=== PATIENT | female | born 1950 | race Caucasian/White ===

== ENCOUNTER 2021-10-05 06:43 | Inpatient (IN) | payer MEDICARE, OTHER ==
[2021-10-05] MEDS ORDERED: Ondansetron 4 MG/2 ML SDV IVPUSH ONE ×2 (06:54→06:56)
[2021-10-05] MEDS ORDERED: Pantoprazole 40 MG Vial IVPUSH ONE (07:17)
[2021-10-05 07:18] LABS: PTT,PARTIAL THROMBOPLSTIN TIME 22.7 SEC (25.6-32.8)
[2021-10-05 07:21] LABS: ANION GAP 19.8 mmol/L (5-15)
--- NOTE | 2021-10-05 07:32 | EDM.PDOC ---
ED HPI GENERAL MEDICAL PROBLEM - General Chief Complaint: Gastrointestinal Problem Stated Complaint: VOMITING Time Seen by Provider: 10/05/21 06:55 Source of Information: Reports: Patient, Family History Limitations: Reports: No Limitations - History of Present Illness INITIAL COMMENTS - FREE TEXT/NARRATIVE: Patient presents the ER this morning after multiple episodes of vomiting black tarry vomitus that started about 3 this morning. Over the last couple days patient states she has been getting very lightheaded with episodes of dizziness and ongoing weakness for the last week with fatigue. This morning she states she is having some nausea with some generalized discomfort in the abdomen but no pain. She does admit to having some shortness of breath with any type of ex ertion. 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 But they had not as of yet. She has had no bleeding issues in the past no problems taking Xarelto has Onset: Sudden Duration: Hour(s): Quality: Reports: Dull Improves with: Reports: None Worsens with: Reports: None Associated Symptoms: Reports: Loss of Appetite, Malaise, Nausea/Vomiting, Shortness of Breath, Weakness. Denies: Confusion, Chest Pain, Cough, Diaphoresis, Fever/Chills, Headaches, Syncope - Related Data Allergies Allergy/AdvReac Type Severity Reaction Status Date / Time zoster vaccine live Allergy Rash Verified 01/11/15 10:19 Home Meds: Home Meds Atenolol [Tenormin] 1 tab PO DAILY 01/07/15 [History] Calcium Carbonate/Vitamin D3 [Calcium 250+D] 1 tab PO DAILY 01/07/15 [History] Cholecalciferol (Vitamin D3) [Vitamin D-3] 1 cap PO DAILY 01/07/15 [History] hydroCHLOROthiazide [Hydrochlorothiazide] 1 tab PO DAILY 01/07/15 [History] Aspirin 81 mg PO DAILY 10/05/21 [History] Calcium Citrate/Vitamin D3 [Calcium Citrate - Vit D Caplet] 1 each PO DAILY 10/05/21 [History] Rivaroxaban [Xarelto] 20 mg PO DAILY 10/05/21 [History] Topiramate [Topamax] 25 mg PO BID 10/05/21 [History] atorvaSTATin [Lipitor] 10 mg PO BEDTIME 10/05/21 [History] lisinopriL [Lisinopril] 10 mg PO DAILY 10/05/21 [History] metFORMIN [Glucophage XR] 500 mg PO BIDMEALS 10/05/21 [History] ED ROS GENERAL - Review of Systems Review Of Systems: See Below Constitutional: Reports: Weakness, Fatigue, Decreased Appetite HEENT: Reports: No Symptoms Respiratory: Reports: Shortness of Breath Cardiovascular: Reports: Dyspnea on Exertion, Lightheadedness. Denies: Chest Pain, Edema, Syncope Endocrine: Reports: No Symptoms GI/Abdominal: Reports: Abdominal Pain, Black Stool, Decreased Appetite, Hematemesis. Denies: Bloody Stool, Constipation, Diarrhea, Distension, Flatus, Nausea : Reports: No Symptoms Musculoskeletal: Reports: No Symptoms Skin: Reports: No Symptoms Neurological: Reports: Dizziness, Weakness Psychiatric: Reports: No Symptoms Hematologic/Lymphatic: Reports: No Symptoms. Denies: Anemia, Easy Bleeding, Easy Bruising Immunologic: Reports: No Symptoms ED EXAM, GI/ABD - Physical Exam Exam: See Below Exam Limited By: No Limitations General Appearance: Alert, WD/WN, No Apparent Distress Eyes: Bilateral: Normal Appearance, EOMI Ears: Normal External Exam, Normal Canal, Hearing Grossly Normal, Normal TMs Nose: Normal Inspection, Normal Mucosa, No Blood Throat/Mouth: Normal Inspection, Normal Lips, Normal Teeth, Normal Gums, Normal Oropharynx, Normal Voice, No Airway Compromise Head: Atraumatic, Normocephalic Neck: Normal Inspection, Supple, Non-Tender, Full Range of Motion Respiratory/Chest: No Respiratory Distress, Lungs Clear, Normal Breath Sounds, No Accessory Muscle Use, Chest Non-Tender Cardiovascular: Normal Peripheral Pulses, Regular Rate, Rhythm, No Edema, No Gallop, No JVD, No Murmur, No Rub, Tachycardia GI/Abdominal Exam: Normal Bowel Sounds, Soft, No Organomegaly, No Distention, No Abnormal Bruit, Tender. No: Non-Tender, Distended, Guarding, Rigid, Rebound, Abnormal Bowel Sounds, Hepatomegaly, Splenomegaly Extremities: Normal Inspection, Normal Range of Motion, Non-Tender, No Pedal Edema, Normal Capillary Refill Neurological: Alert, Oriented, CN II-XII Intact, Normal Cognition, Normal Gait, No Motor/Sensory Deficits Psychiatric: Normal Affect, Normal Mood Skin Exam: Warm, Dry, Intact, Normal Color, No Rash Lymphatic: No Adenopathy Course - Vital Signs Text/Narrative:: CBC CMP INR EKG Positive orthostatics just with the patient lying in the bed going to sitting up ZOFRAN 8 mg IV Protonix 40 mg IV CBC hemoglobin 11 hematocrit 33 BUN and creatinine is elevated BUN at 75/1.6 INR 1.4 normal PTT Positive Hemoccult Called [facility] Spoke with Dr. Adams she states she is covered up this morning have the patient admitted under the on-call provider Spoke with Dr. Maile Morin she will admit the patient 0 [phone] Last Recorded V/S: Last Vital Signs Temp 36.2 C 10/05/21 06:48 Pulse 107 H 10/05/21 08:13 Resp 11 L 10/05/21 08:13 BP 95/38 L 10/05/21 08:13 Pulse Ox 117 H 10/05/21 08:13 - Orders/Labs/Meds Orders: Active Orders 24 hr Category Date Time Status Promethazine [Phenergan] 12.5 mg Med 10/05/21 08:27 Ordered Sodium Chloride 0.9% [Normal Saline] 100 ml IV ONETIME Medication Orders Promethazine HCl 12.5 mg/ (Sodium Chloride) 100.5 mls @ 400 mls/hr IV ONETIME ONE Stop: 10/05/21 08:42 Last Admin: 10/05/21 08:35 Dose: 400 mls/hr Documented by: LUCINDA Labs: Laboratory Tests 10/05/21 10/05/21 10/05/21 Range/Units 06:40 06:40 06:40 WBC 10.3 H (4.0-10.0) x10^3/uL RBC 3.75 L (4.00-5.50) x10^6/uL Hgb 11.0 L (12.0-16.0) g/dL Hct 33.4 (33.0-47.0) % MCV 89.1 (78.0-93.0) fL MCH 29.3 (26.0-32.0) pg MCHC 32.9 (32.0-36.0) g/dL RDW Coeff of Yony 13.9 (10.0-15.0) % Plt Count 265 (130-400) x10^3/uL Immature Gran % (Auto) 0.10 (0.00-0.43) % Neut % (Auto) 73.4 (50.0-80.0) % Lymph % (Auto) 23.0 L (25.0-50.0) % [place] % (Auto) 3.0 (2.0-11.0) % Eos % (Auto) 0.4 (0.0-4.0) % Baso % (Auto) 0.1 L (0.2-1.2) % Neut # (Auto) 7.6 (1.8-7.7) x10^3/uL Lymph # (Auto) 2.4 (1.0-4.8) x10^3/uL [place] # (Auto) 0.3 (0.0-0.8) x10^3/uL Eos # (Auto) 0.0 (0.0-0.5) x10^3/uL Baso # (Auto) 0.0 (0.0-0.2) x10^3/uL Immature Gran # (Auto) 0.01 (0.00-0.07) x10^3/uL PT 15.5 H (9.9-12.5) SEC INR 1.4 L (2.0-3.5) APTT 22.7 L (25.6-32.8) SEC Sodium 141 (136-145) mmol/L Potassium 3.8 (3.5-5.1) mmol/L Chloride 103 (98-107) mmol/L Carbon Dioxide 22 (21-32) mmol/L Anion Gap 19.8 H (5-15) mmol/L BUN 75 H* (7-18) mg/dL Creatinine 1.6 H (0.55-1.02) mg/dL Est Cr Clr Drug Dosing 27.44 mL/min Estimated GFR (MDRD) 32 Glucose 209 H (70-99) mg/dL Calcium 9.3 (8.5-10.1) mg/dL Corrected Calcium 10.0 (8.5-10.1) mg/dL Total Bilirubin 0.7 (0.2-1.0) mg/dL AST 16 (15-37) U/L ALT 28 (14-59) U/L Alkaline Phosphatase 48 (46-116) U/L Total Protein 6.0 L (6.4-8.2) g/dL Albumin 3.1 L (3.4-5.0) g/dL Globulin 2.9 Albumin/Globulin Ratio 1.07 Stool Occult Blood (NEGATIVE) 10/05/21 Range/Units 07:41 WBC (4.0-10.0) x10^3/uL RBC (4.00-5.50) x10^6/uL Hgb (12.0-16.0) g/dL Hct (33.0-47.0) % MCV (78.0-93.0) fL MCH (26.0-32.0) pg MCHC (32.0-36.0) g/dL RDW Coeff of Yony (10.0-15.0) % Plt Count (130-400) x10^3/uL Immature Gran % (Auto) (0.00-0.43) % Neut % (Auto) (50.0-80.0) % Lymph % (Auto) (25.0-50.0) % [place] % (Auto) (2.0-11.0) % Eos % (Auto) (0.0-4.0) % Baso % (Auto) (0.2-1.2) % Neut # (Auto) (1.8-7.7) x10^3/uL Lymph # (Auto) (1.0-4.8) x10^3/uL [place] # (Auto) (0.0-0.8) x10^3/uL Eos # (Auto) (0.0-0.5) x10^3/uL Baso # (Auto) (0.0-0.2) x10^3/uL Immature Gran # (Auto) (0.00-0.07) x10^3/uL PT (9.9-12.5) SEC INR (2.0-3.5) APTT (25.6-32.8) SEC Sodium (136-145) mmol/L Potassium (3.5-5.1) mmol/L Chloride (98-107) mmol/L Carbon Dioxide (21-32) mmol/L Anion Gap (5-15) mmol/L BUN (7-18) mg/dL Creatinine (0.55-1.02) mg/dL Est Cr Clr Drug Dosing mL/min Estimated GFR (MDRD) Glucose (70-99) mg/dL Calcium (8.5-10.1) mg/dL Corrected Calcium (8.5-10.1) mg/dL Total Bilirubin (0.2-1.0) mg/dL AST (15-37) U/L ALT (14-59) U/L Alkaline Phosphatase (46-116) U/L Total Protein (6.4-8.2) g/dL Albumin (3.4-5.0) g/dL Globulin Albumin/Globulin Ratio Stool Occult Blood Positive H (NEGATIVE) Meds: Medications Generic Name Dose Route Start Last Admin Trade Name Freq PRN Reason Stop Dose Admin Promethazine HCl 12.5 mg/ 100.5 mls @ 400 mls/hr 10/05/21 08:27 10/05/21 08:35 Sodium Chloride IV 10/05/21 08:42 400 mls/hr ONETIME ONE Administration Discontinued Medications Generic Name Dose Route Start Last Admin Trade Name Freq PRN Reason Stop Dose Admin Ondansetron HCl 4 mg 10/05/21 06:54 10/05/21 07:05 Ondansetron 4 Mg/2 Ml Sdv IVPUSH 10/05/21 06:55 4 mg ONETIME ONE Administration Ondansetron HCl 4 mg 10/05/21 06:56 10/05/21 07:05 Ondansetron 4 Mg/2 Ml Sdv IVPUSH 10/05/21 06:57 4 mg ONETIME ONE Administration Pantoprazole Sodium 40 mg 10/05/21 07:17 10/05/21 08:26 Pantoprazole 40 Mg Vial IVPUSH 10/05/21 07:18 40 mg ONETIME ONE Administration Departure - Departure Time of Disposition: 08:20 Disposition: Admitted As Inpatient 65 Condition: Good Clinical Impression: GI bleed, History of atrial fibrillation, Anticoagulation management encounter, Dizziness, Fatigue, Nausea and vomiting - Discharge Information *PRESCRIPTION DRUG MONITORING PROGRAM REVIEWED*: No *COPY OF PRESCRIPTION DRUG MONITORING REPORT IN PATIENT PRASANNA: No Referrals: Rebeca Senior MD [Primary Care Provider] - Forms: ED Department Discharge Sepsis Event Note (ED) - Evaluation Sepsis Screening Result: No Definite Risk - Focused Exam Vital Signs: Vital Signs Temp Pulse Resp BP Pulse Ox 10/05/21 08:13 107 H 11 L 95/38 L 117 H 10/05/21 07:42 127 H 13 93/57 L 98 10/05/21 06:48 36.2 C 105 H 19 99/50 L 97 - Problem List & Annotations (1) GI bleed SNOMED Code(s): 25240929 Code(s): K92.2 - GASTROINTESTINAL HEMORRHAGE, UNSPECIFIED Status: Acute Current Visit: Yes (2) Anticoagulation management encounter SNOMED Code(s): 258318626 Code(s): Z51.81 - ENCOUNTER FOR THERAPEUTIC DRUG LEVEL MONITORING; Z79.01 - STEM TEACHER (CURRENT) USE OF ANTICOAGULANTS Status: Acute Current Visit: Yes (3) Dizziness SNOMED Code(s): 521649081, 001836523 Code(s): R42 - DIZZINESS AND GIDDINESS Status: Acute Current Visit: Yes (4) Fatigue SNOMED Code(s): 75696084 Code(s): R53.83 - OTHER FATIGUE Status: Acute Current Visit: Yes (5) History of atrial fibrillation SNOMED Code(s): 076210928 Code(s): Z86.79 - PERSONAL HISTORY OF OTHER DISEASES OF THE CIRCULATORY SYSTEM Status: Acute Current Visit: Yes (6) Nausea and vomiting SNOMED Code(s): 28202883 Code(s): R11.2 - NAUSEA WITH VOMITING, UNSPECIFIED Status: Acute Current Visit: Yes - My Orders Last 24 Hours: My Active Orders 10/05/21 08:27 Promethazine [Phenergan] 12.5 mg Sodium Chloride 0.9% [Normal Saline] 100 ml IV ONETIME - Assessment/Plan Last 24 Hours: My Active Orders 10/05/21 08:27 Promethazine [Phenergan] 12.5 mg Sodium Chloride 0.9% [Normal Saline] 100 ml IV ONETIME
[2021-10-05] MEDS ORDERED: Promethazine 12.5 MG in Sodium Chloride 0.9% 100 ML IV ONE (08:27)
[2021-10-05] MEDS ORDERED: Sodium Chloride 0.9% 1,000 ML IV SCH ×2 (09:15→09:45)
[2021-10-05] MEDS ORDERED: Ondansetron 4 MG/2 ML SDV IV PRN (09:38)
[2021-10-05] MEDS ORDERED: Promethazine 12.5 MG in Sodium Chloride 0.9% 100 ML IV PRN (09:38)
--- NOTE | 2021-10-05 09:51 | PCM.HP.2 ---
H&P History of Present Illness - General Date of Service: 10/05/21 Admit Problem/Dx: Admission Diagnosis/Problem Admission Diagnosis/Problem GI bleed not requiring more than 4 units of blood in 24 hours, ICU, or surgery Source of Information: Patient History Limitations: Reports: No Limitations - History of Present Illness Initial Comments - Free Text/Narative: Mrs. Clay is a 71 yo female with PMH of a-fib, HTN, ROLANDO, RAD, hyperlipidemia, obesity, and osteopenia who presented to the ER for evaluation following 3 episodes of black, coffee ground emesis overnight. She really has not been doing well for the past 1-2 weeks. She has had some shortness of breath with exertion and also has been more fatigued than usual. No chest pain. She has been lightheaded and that has been progressively getting worse. Until the past 24 hours, there was no evidence of any blood loss. However, over the past 24 hours, she had a black stool and the coffee ground emesis as above. She has not vomited since coming in to the ER now and has not had any further stools. She has no abdominal pain at all. She saw her sliver lap tender yesterday and they adjusted some of her BP medications thinking that was the cause of her lightheadedness since she has also lost some weight by making some lifestyle changes. She does not take any NSAID's or drink alcohol on a regular basis. She does not smoke. She is on xarelto and aspirin. - Related Data Allergies/Adverse Reactions: Allergies Allergy/AdvReac Type Severity Reaction Status Date / Time zoster vaccine live Allergy Rash Verified 01/11/15 10:19 Home Medications: Home Meds Atenolol [Tenormin] 100 tab PO DAILY 01/07/15 [History] Calcium Carbonate/Vitamin D3 [Calcium 250+D] 1 tab PO DAILY 01/07/15 [History] Cholecalciferol (Vitamin D3) [Vitamin D-3] 1 cap PO DAILY 01/07/15 [History] hydroCHLOROthiazide [Hydrochlorothiazide] 1 tab PO DAILY 01/07/15 [History] Aspirin 81 mg PO DAILY 10/05/21 [History] Calcium Citrate/Vitamin D3 [Calcium Citrate - Vit D Caplet] 1 each PO DAILY 10/05/21 [History] Rivaroxaban [Xarelto] 20 mg PO DAILY 10/05/21 [History] Topiramate [Topamax] 25 mg PO BID 10/05/21 [History] atorvaSTATin [Lipitor] 10 mg PO BEDTIME 10/05/21 [History] lisinopriL [Lisinopril] 10 mg PO DAILY 10/05/21 [History] metFORMIN [Glucophage XR] 500 mg PO BIDMEALS 10/05/21 [History] Past Medical History HEENT History: Reports: None Cardiovascular History: Reports: Afib, High Cholesterol, Hypertension Respiratory History: Reports: Asthma, Sleep Apnea Gastrointestinal History: Reports: None Genitourinary History: Reports: None Musculoskeletal History: Reports: Other (See Below) (osteopenia) Neurological History: Reports: None Psychiatric History: Reports: None Endocrine/Metabolic History: Reports: Obesity/BMI 30+ Hematologic History: Reports: None Immunologic History: Reports: None Oncologic (Cancer) History: Reports: None Dermatologic History: Reports: None - Infectious Disease History Infectious Disease History: Reports: None - Past Surgical History HEENT Surgical History: Reports: Cataract Surgery GI Surgical History: Reports: Other (See Below) (lap for infertility x 3) Musculoskeletal Surgical History: Reports: Hip Replacement, Other (See Below) (ankle fracture) Social & Family History - Family History Cardiac: Reports: CAD, Hypertension Neurological: Reports: CVA - Tobacco Use Tobacco Use Status *Q: Never Tobacco User - Alcohol Use Alcohol Use History: No Alcohol Use in Last Twelve Months: Yes Alcohol Use Frequency: Rarely - Recreational Drug Use Recreational Drug Use: No - Living Situation & Occupation Living situation: Reports: , with Spouse Occupation: Retired H&P Review of Systems - Review of Systems: Review Of Systems: See Below General: Reports: No Symptoms HEENT: Reports: No Symptoms Pulmonary: Reports: Shortness of Breath. Denies: Cough Cardiovascular: Reports: Dyspnea on Exertion, Lightheadedness. Denies: Chest Pain Gastrointestinal: Reports: Black Stool, Melena, Nausea, Vomiting. Denies: Ab dominal Pain, Anorexia, Decreased Appetite Genitourinary: Reports: No Symptoms Musculoskeletal: Reports: No Symptoms Skin: Reports: No Symptoms Psychiatric: Reports: No Symptoms Neurological: Reports: No Symptoms Hematologic/Lymphatic: Reports: No Symptoms Exam - Exam Exam: See Below - Vital Signs Vital Signs: Last Vital Signs Temp 36.2 C 10/05/21 06:48 Pulse 107 H 10/05/21 08:13 Resp 11 L 10/05/21 08:13 BP 95/38 L 10/05/21 08:13 Pulse Ox 117 H 10/05/21 08:13 Weight: 87.09 kg - Exam General: Alert, Oriented, Cooperative HEENT: Conjunctiva Clear, Mucosa Moist & Watchung, Posterior Pharynx Clear, Pupils Equal, Pupils Reactive Neck: Supple, Trachea Midline. No: Lymphadenopathy, Thyromegaly Lungs: Clear to Auscultation, Normal Respiratory Effort Cardiovascular: Normal S1, Normal S2, Irregular Rhythm, Tachycardia, Systolic Murmur GI/Abdominal Exam: Normal Bowel Sounds, Soft, Non-Tender, No Organomegaly, No Distention, No Mass Extremities: Normal Inspection, Normal Range of Motion, Non-Tender, No Pedal Edema, Normal Capillary Refill Peripheral Pulses: 2+: Radial (L), Radial (R) Skin: Warm, Dry, Intact Neuro Extensive - Mental Status: Alert, Oriented x3, Normal Cognition - Patient Data Lab Results Last 24 hrs: Laboratory Results - last 24 hr 10/05/21 10/05/21 10/05/21 Range/Units 06:40 06:40 06:40 WBC 10.3 H (4.0-10.0) x10^3/uL RBC 3.75 L (4.00-5.50) x10^6/uL Hgb 11.0 L (12.0-16.0) g/dL Hct 33.4 (33.0-47.0) % MCV 89.1 (78.0-93.0) fL MCH 29.3 (26.0-32.0) pg MCHC 32.9 (32.0-36.0) g/dL RDW Coeff of Yony 13.9 (10.0-15.0) % Plt Count 265 (130-400) x10^3/uL Immature Gran % (Auto) 0.10 (0.00-0.43) % Neut % (Auto) 73.4 (50.0-80.0) % Lymph % (Auto) 23.0 L (25.0-50.0) % [place] % (Auto) 3.0 (2.0-11.0) % Eos % (Auto) 0.4 (0.0-4.0) % Baso % (Auto) 0.1 L (0.2-1.2) % Neut # (Auto) 7.6 (1.8-7.7) x10^3/uL Lymph # (Auto) 2.4 (1.0-4.8) x10^3/uL [place] # (Auto) 0.3 (0.0-0.8) x10^3/uL Eos # (Auto) 0.0 (0.0-0.5) x10^3/uL Baso # (Auto) 0.0 (0.0-0.2) x10^3/uL Immature Gran # (Auto) 0.01 (0.00-0.07) x10^3/uL PT 15.5 H (9.9-12.5) SEC INR 1.4 L (2.0-3.5) APTT 22.7 L (25.6-32.8) SEC Sodium 141 (136-145) mmol/L Potassium 3.8 (3.5-5.1) mmol/L Chloride 103 (98-107) mmol/L Carbon Dioxide 22 (21-32) mmol/L Anion Gap 19.8 H (5-15) mmol/L BUN 75 H* (7-18) mg/dL Creatinine 1.6 H (0.55-1.02) mg/dL Est Cr Clr Drug Dosing 27.44 mL/min Estimated GFR (MDRD) 32 Glucose 209 H (70-99) mg/dL Calcium 9.3 (8.5-10.1) mg/dL Corrected Calcium 10.0 (8.5-10.1) mg/dL Total Bilirubin 0.7 (0.2-1.0) mg/dL AST 16 (15-37) U/L ALT 28 (14-59) U/L Alkaline Phosphatase 48 (46-116) U/L Total Protein 6.0 L (6.4-8.2) g/dL Albumin 3.1 L (3.4-5.0) g/dL Globulin 2.9 Albumin/Globulin Ratio 1.07 Stool Occult Blood (NEGATIVE) SARS CoV-2 RNA Rapid LIBRADO (NEGATIVE) 10/05/21 10/05/21 Range/Units 07:41 08:56 WBC (4.0-10.0) x10^3/uL RBC (4.00-5.50) x10^6/uL Hgb (12.0-16.0) g/dL Hct (33.0-47.0) % MCV (78.0-93.0) fL MCH (26.0-32.0) pg MCHC (32.0-36.0) g/dL RDW Coeff of Yony (10.0-15.0) % Plt Count (130-400) x10^3/uL Immature Gran % (Auto) (0.00-0.43) % Neut % (Auto) (50.0-80.0) % Lymph % (Auto) (25.0-50.0) % [place] % (Auto) (2.0-11.0) % Eos % (Auto) (0.0-4.0) % Baso % (Auto) (0.2-1.2) % Neut # (Auto) (1.8-7.7) x10^3/uL Lymph # (Auto) (1.0-4.8) x10^3/uL [place] # (Auto) (0.0-0.8) x10^3/uL Eos # (Auto) (0.0-0.5) x10^3/uL Baso # (Auto) (0.0-0.2) x10^3/uL Immature Gran # (Auto) (0.00-0.07) x10^3/uL PT (9.9-12.5) SEC INR (2.0-3.5) APTT (25.6-32.8) SEC Sodium (136-145) mmol/L Potassium (3.5-5.1) mmol/L Chloride (98-107) mmol/L Carbon Dioxide (21-32) mmol/L Anion Gap (5-15) mmol/L BUN (7-18) mg/dL Creatinine (0.55-1.02) mg/dL Est Cr Clr Drug Dosing mL/min Estimated GFR (MDRD) Glucose (70-99) mg/dL Calcium (8.5-10.1) mg/dL Corrected Calcium (8.5-10.1) mg/dL Total Bilirubin (0.2-1.0) mg/dL AST (15-37) U/L ALT (14-59) U/L Alkaline Phosphatase (46-116) U/L Total Protein (6.4-8.2) g/dL Albumin (3.4-5.0) g/dL Globulin Albumin/Globulin Ratio Stool Occult Blood Positive H (NEGATIVE) SARS CoV-2 RNA Rapid LIBRADO Negative (NEGATIVE) Result Diagrams: 10/05/21 10:30 10/05/21 06:40 Sepsis Event Note - Evaluation Sepsis Screening Result: No Definite Risk - Focused Exam Vital Signs: Vital Signs Temp Pulse Resp BP Pulse Ox 10/05/21 08:13 107 H 11 L 95/38 L 117 H 10/05/21 07:42 127 H 13 93/57 L 98 10/05/21 06:48 36.2 C 105 H 19 99/50 L 97 *Q Meaningful Use (ADM) - VTE *Q VTE Anticoagulation Contraindications: Medical/Procedure Contrai - Problem List (1) GI bleed SNOMED Code(s): 73916040 ICD Code: K92.2 - GASTROINTESTINAL HEMORRHAGE, UNSPECIFIED Status: Acute Current Visit: Yes Qualifiers: GI bleed type/associated pathology: unspecified gastrointestinal hemorrhage type Qualified Code(s): K92.2 - Gastrointestinal hemorrhage, unspecified (2) Anemia SNOMED Code(s): 464640396 ICD Code: D64.9 - ANEMIA, UNSPECIFIED Status: Acute Current Visit: Yes Qualifiers: Anemia type: other cause Other causes of anemia: acute posthemorrhagic Qualified Code(s): D62 - Acute posthemorrhagic anemia (3) Atrial fibrillation SNOMED Code(s): 23485737 ICD Code: I48.91 - UNSPECIFIED ATRIAL FIBRILLATION Status: Chronic Current Visit: Yes Qualifiers: Atrial fibrillation type: persistent (not longstanding) Qualified Code(s): I48.19 - Other persistent atrial fibrillation; I48.1 - Persistent atrial fibrillation (4) Chronic anticoagulation SNOMED Code(s): 829786435 ICD Code: Z79.01 - DEPUTY BAILIFF (CURRENT) USE OF ANTICOAGULANTS Status: Chronic Current Visit: Yes (5) TRU (acute kidney injury) SNOMED Code(s): 19486969, 04827756 ICD Code: N17.9 - ACUTE KIDNEY FAILURE, UNSPECIFIED Status: Acute Current Visit: Yes (6) Hypertension SNOMED Code(s): 88793835 ICD Code: I10 - ESSENTIAL (PRIMARY) HYPERTENSION Status: Chronic Current Visit: Yes Qualifiers: Hypertension type: primary hypertension Qualified Code(s): I10 - Essential (primary) hypertension (7) ROLANDO (obstructive sleep apnea) SNOMED Code(s): 66227515 ICD Code: G47.33 - OBSTRUCTIVE SLEEP APNEA (ADULT) (PEDIATRIC) Status: Chronic Current Visit: Yes (8) Reactive airway disease SNOMED Code(s): 130098988142 ICD Code: J45.909 - UNSPECIFIED ASTHMA, UNCOMPLICATED Status: Chronic Current Visit: Yes Qualifiers: Asthma severity: unspecified severity Asthma persistence: unspecified Asthma complication type: uncomplicated Qualified Code(s): J45.909 - Unspecified asthma, uncomplicated (9) Obesity SNOMED Code(s): 400765818, 796236149 ICD Code: E66.9 - OBESITY, UNSPECIFIED Status: Chronic Current Visit: Yes Qualifiers: Obesity type: due to excess calories Obesity classification: adult class 1 (BMI 30 - 34.9) Serious obesity comorbidity presence: with serious comorbidity Body mass index: BMI 32.0-32.9 Qualified Code(s): E66.09 - Other obesity due to excess calories; Z68.32 - Body mass index [BMI] 32.0-32.9, adult Problem List Initiated/Reviewed/Updated: Yes Orders Last 24hrs: Active Orders 24 hr Category Date Time Status Patient Status [ADT] Stat ADT 10/05/21 08:49 Active Notify Provider Vital Signs [RC] ASDIRECTED Care 10/05/21 09:39 Ordered Oxygen Therapy [RC] PRN Care 10/05/21 09:38 Ordered Up With Assistance [RC] ASDIRECTED Care 10/05/21 09:38 Ordered VTE/DVT Education [RC] PER UNIT ROUTINE Care 10/05/21 09:38 Ordered Vital Signs [RC] Q4H Care 10/05/21 09:38 Ordered Nothing per Oral Now Diet [DIET] Diet 10/05/21 Breakfast Ordered CBC WITH AUTO DIFF [HEME] Routine Lab 10/05/21 10:30 Ordered Ondansetron [Zofran] Med 10/05/21 09:38 Ordered 4 mg IV Q6H PRN Pantoprazole [ProTONIX IV] Med 10/05/21 20:00 Ordered 40 mg IVPUSH BID Promethazine [Phenergan] 12.5 mg Med 10/05/21 09:38 Ordered Sodium Chloride 0.9% [Normal Saline] 100 ml IV Q6H Sodium Chloride 0.9% [Normal Saline] 1,000 ml Med 10/05/21 09:45 Ordered IV ASDIRECTED Anticoagulation Contraindications VTE [AST] Per Unit Oth 10/05/21 09:38 Ordered Routine Resuscitation Status Routine Resus Stat 10/05/21 09:38 Ordered Medication Orders Sodium Chloride (Normal Saline) 1,000 mls @ 200 mls/hr IV ASDIRECTED MERLE Pantoprazole Sodium (Pantoprazole 40 Mg Vial) 40 mg IVPUSH BID MERLE Assessment/Plan Comment:: 71 yo female admitted with GI bleed. #1 GI bleed #2 Acute blood loss anemia - Plan at this time is to check Hgb every 4 hours. - After patient was seen for admission, her BP dropped and HR increased. Hgb also down to 8.6. Therefore, a rapid response was called. Patient was given additional boluses of normal saline and then lactated ringers. She was given a stat transfusion of 1 unit PRBC as well as 1 unit FFP, 50 mg of octreotide, and 2000 of KCentra. - The transfer line and [facility] were contacted to attempt transfer of the patient. [facility] not able to accept. Transfer line is working on it. - Patient and aware that we do not have access to definitive care here in [place] but that we will do everything we can locally and continue to work on getting her somewhere that can give her definitive care. - Patient will get another 2 units of PRBC's. - She has [address] - NPO. - Anti-emetics as ordered. #3 A-fib #4 Chronic anticoagulation - HR is up, likely partially from the a-fib and not having her atenolol; however, this will be held in light of her current tenuous status. - Hold anticoagulation. #5 TRU - Secondary to above. - Fluids and PRBC's as above. #6 Hypertension #7 ROLANDO #8 RAD #9 Obesity - Home medications to be held. Patient is admitted to acute - she really needs to be in a center with surgery at the very least but there is no bed at this time. Therefore, we will do what we can as above. >1 hour was spent in the care of this critical patient this morning. Status is guarded at this point. Code status is full - discussed on admission. No pharmacologic VTE prophylaxis as this is contraindicated in light of above. - Mortality Measure Prognosis:: Poor (guarded)
[2021-10-05] MEDS ORDERED: Pantoprazole 40 MG Vial IVPUSH SCH (10:45)
[2021-10-05] MEDS ORDERED: Octreotide 100 MCG/ML SDV IV ONE (10:59)
[2021-10-05] MEDS ORDERED: Lactated Ringers 1,000 ML IV SCH ×2 (11:15→13:15)
[2021-10-05] MEDS ORDERED: Metoclopramide 10 MG/2 ML SDV IVPUSH STA (11:19)
[2021-10-05] MEDS ORDERED: Factor IX Complex Human 500 UNIT VIAL ONE (11:30)
[2021-10-05] MEDS ORDERED: FACTOR IX COMPLEX HUMAN 2000 UNIT IV ONE ×2 (11:30)
[2021-10-05] MEDS ORDERED: Pantoprazole 40 MG in Sodium Chloride 0.9% 100 ML IV SCH (11:45)
--- NOTE | 2021-10-05 13:57 | PCM.DCSUM1 ---
Discharge Summary - Hospital Course Brief History: Patient admitted with GI bleed. Unstable but initially unable to transfer to a tertiary center. Now bed available at [facility]. Patient will be transferred there for further care. - Discharge Data Discharge Date: 10/05/21 Discharge Disposition: DC/Tfer to Acute Hospital 02 Condition: Good - Referral to Home Health Primary Care Physician: Rebeca Senior MD - Discharge Diagnosis/Problem(s) (1) GI bleed SNOMED Code(s): 91401191 ICD Code: K92.2 - GASTROINTESTINAL HEMORRHAGE, UNSPECIFIED Status: Acute Current Visit: Yes Qualifiers: GI bleed type/associated pathology: unspecified gastrointestinal hemorrhage type Qualified Code(s): K92.2 - Gastrointestinal hemorrhage, unspecified (2) Anemia SNOMED Code(s): 431419056 ICD Code: D64.9 - ANEMIA, UNSPECIFIED Status: Acute Current Visit: Yes Qualifiers: Anemia type: other cause Other causes of anemia: acute posthemorrhagic Qualified Code(s): D62 - Acute posthemorrhagic anemia (3) Atrial fibrillation SNOMED Code(s): 18815961 ICD Code: I48.91 - UNSPECIFIED ATRIAL FIBRILLATION Status: Chronic Current Visit: Yes Qualifiers: Atrial fibrillation type: persistent (not longstanding) Qualified Code(s): I48.19 - Other persistent atrial fibrillation; I48.1 - Persistent atrial fibrillation (4) Chronic anticoagulation SNOMED Code(s): 773422358 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 Status: Chronic Current Visit: Yes (5) TRU (acute kidney injury) SNOMED Code(s): 46125129, 78657160 ICD Code: N17.9 - ACUTE KIDNEY FAILURE, UNSPECIFIED Status: Acute Current Visit: Yes (6) Hypertension SNOMED Code(s): 40273331 ICD Code: I10 - ESSENTIAL (PRIMARY) HYPERTENSION Status: Chronic Current Visit: Yes Qualifiers: Hypertension type: primary hypertension Qualified Code(s): I10 - Essential (primary) hypertension (7) ROLANDO (obstructive sleep apnea) SNOMED Code(s): 57748938 ICD Code: G47.33 - OBSTRUCTIVE SLEEP APNEA (ADULT) (PEDIATRIC) Status: Chronic Current Visit: Yes (8) Reactive airway disease SNOMED Code(s): 503974545932 ICD Code: J45.909 - UNSPECIFIED ASTHMA, UNCOMPLICATED Status: Chronic Current Visit: Yes Qualifiers: Asthma severity: unspecified severity Asthma persistence: unspecified Asthma complication type: uncomplicated Qualified Code(s): J45.909 - Unspecified asthma, uncomplicated (9) Obesity SNOMED Code(s): 237872402, 524140337 ICD Code: E66.9 - OBESITY, UNSPECIFIED Status: Chronic Current Visit: Yes Qualifiers: Obesity type: due to excess calories Obesity classification: adult class 1 (BMI 30 - 34.9) Serious obesity comorbidity presence: with serious comorbidity Body mass index: BMI 32.0-32.9 Qualified Code(s): E66.09 - Other obesity due to excess calories; Z68.32 - Body mass index [BMI] 32.0-32.9, adult - Discharge Plan *PRESCRIPTION DRUG MONITORING PROGRAM REVIEWED*: No *COPY OF PRESCRIPTION DRUG MONITORING REPORT IN PATIENT PRASANNA: No Home Medications: Home Meds Atenolol [Tenormin] 100 tab PO DAILY 01/07/15 [History] Calcium Carbonate/Vitamin D3 [Calcium 250+D] 1 tab PO DAILY 01/07/15 [History] Cholecalciferol (Vitamin D3) [Vitamin D-3] 1 cap PO DAILY 01/07/15 [History] hydroCHLOROthiazide [Hydrochlorothiazide] 1 tab PO DAILY 01/07/15 [History] Aspirin 81 mg PO DAILY 10/05/21 [History] Calcium Citrate/Vitamin D3 [Calcium Citrate - Vit D Caplet] 1 each PO DAILY 10/05/21 [History] Rivaroxaban [Xarelto] 20 mg PO DAILY 10/05/21 [History] Topiramate [Topamax] 25 mg PO BID 10/05/21 [History] atorvaSTATin [Lipitor] 10 mg PO BEDTIME 10/05/21 [History] lisinopriL [Lisinopril] 10 mg PO DAILY 10/05/21 [History] metFORMIN [Glucophage XR] 500 mg PO BIDMEALS 10/05/21 [History] Forms: ED Department Discharge Referrals: Rebeca Senior MD [Primary Care Provider] - - Discharge Summary/Plan Comment DC Time >30 min.: Yes Total # of Minutes for Discharge Time: 60 - Patient Data Vitals - Most Recent: Last Vital Signs Temp 37.7 C 10/05/21 13:46 Pulse 125 H 10/05/21 13:46 Resp 20 10/05/21 13:46 BP 128/68 10/05/21 13:46 Pulse Ox 97 10/05/21 13:46 Weight - Most Recent: 87.09 kg I&O - Last 24 hours: Intake & Output 10/04/21 10/05/21 10/05/21 22:59 06:59 14:59 Intake Total 80 Balance 80 Lab Results - Last 24 hrs: Laboratory Results - last 24 hr 10/05/21 10/05/21 10/05/21 Range/Units 06:40 06:40 06:40 WBC 10.3 H (4.0-10.0) x10^3/uL RBC 3.75 L (4.00-5.50) x10^6/uL Hgb 11.0 L (12.0-16.0) g/dL Hct 33.4 (33.0-47.0) % MCV 89.1 (78.0-93.0) fL MCH 29.3 (26.0-32.0) pg MCHC 32.9 (32.0-36.0) g/dL RDW Coeff of Yony 13.9 (10.0-15.0) % Plt Count 265 (130-400) x10^3/uL Immature Gran % (Auto) 0.10 (0.00-0.43) % Neut % (Auto) 73.4 (50.0-80.0) % Lymph % (Auto) 23.0 L (25.0-50.0) % Floyd % (Auto) 3.0 (2.0-11.0) % Eos % (Auto) 0.4 (0.0-4.0) % Baso % (Auto) 0.1 L (0.2-1.2) % Neut # (Auto) 7.6 (1.8-7.7) x10^3/uL Lymph # (Auto) 2.4 (1.0-4.8) x10^3/uL Floyd # (Auto) 0.3 (0.0-0.8) x10^3/uL Eos # (Auto) 0.0 (0.0-0.5) x10^3/uL Baso # (Auto) 0.0 (0.0-0.2) x10^3/uL Immature Gran # (Auto) 0.01 (0.00-0.07) x10^3/uL PT 15.5 H (9.9-12.5) SEC INR 1.4 L (2.0-3.5) APTT 22.7 L (25.6-32.8) SEC Sodium 141 (136-145) mmol/L Potassium 3.8 (3.5-5.1) mmol/L Chloride 103 (98-107) mmol/L Carbon Dioxide 22 (21-32) mmol/L Anion Gap 19.8 H (5-15) mmol/L BUN 75 H* (7-18) mg/dL Creatinine 1.6 H (0.55-1.02) mg/dL Est Cr Clr Drug Dosing 27.44 mL/min Estimated GFR (MDRD) 32 Glucose 209 H (70-99) mg/dL Calcium 9.3 (8.5-10.1) mg/dL Corrected Calcium 10.0 (8.5-10.1) mg/dL Total Bilirubin 0.7 (0.2-1.0) mg/dL AST 16 (15-37) U/L ALT 28 (14-59) U/L Alkaline Phosphatase 48 (46-116) U/L Total Protein 6.0 L (6.4-8.2) g/dL Albumin 3.1 L (3.4-5.0) g/dL Globulin 2.9 Albumin/Globulin Ratio 1.07 Stool Occult Blood (NEGATIVE) SARS CoV-2 RNA Rapid LIBRADO (NEGATIVE) Blood Type Gel Antibody Screen Crossmatch 10/05/21 10/05/21 10/05/21 Range/Units 07:41 08:56 10:30 WBC 6.1 (4.0-10.0) x10^3/uL RBC 2.85 L (4.00-5.50) x10^6/uL Hgb 8.6 L D (12.0-16.0) g/dL Hct 26.0 L (33.0-47.0) % MCV 91.2 (78.0-93.0) fL MCH 30.2 (26.0-32.0) pg MCHC 33.1 (32.0-36.0) g/dL RDW Coeff of Yony 14.1 (10.0-15.0) % Plt Count 199 (130-400) x10^3/uL Immature Gran % (Auto) 0.20 (0.00-0.43) % Neut % (Auto) 79.6 (50.0-80.0) % Lymph % (Auto) 16.7 L (25.0-50.0) % Floyd % (Auto) 3.1 (2.0-11.0) % Eos % (Auto) 0.2 (0.0-4.0) % Baso % (Auto) 0.2 (0.2-1.2) % Neut # (Auto) 4.9 (1.8-7.7) x10^3/uL Lymph # (Auto) 1.0 (1.0-4.8) x10^3/uL Floyd # (Auto) 0.2 (0.0-0.8) x10^3/uL Eos # (Auto) 0.0 (0.0-0.5) x10^3/uL Baso # (Auto) 0.0 (0.0-0.2) x10^3/uL Immature Gran # (Auto) 0.01 (0.00-0.07) x10^3/uL PT (9.9-12.5) SEC INR (2.0-3.5) APTT (25.6-32.8) SEC Sodium (136-145) mmol/L Potassium (3.5-5.1) mmol/L Chloride (98-107) mmol/L Carbon Dioxide (21-32) mmol/L Anion Gap (5-15) mmol/L BUN (7-18) mg/dL Creatinine (0.55-1.02) mg/dL Est Cr Clr Drug Dosing mL/min Estimated GFR (MDRD) Glucose (70-99) mg/dL Calcium (8.5-10.1) mg/dL Corrected Calcium (8.5-10.1) mg/dL Total Bilirubin (0.2-1.0) mg/dL AST (15-37) U/L ALT (14-59) U/L Alkaline Phosphatase (46-116) U/L Total Protein (6.4-8.2) g/dL Albumin (3.4-5.0) g/dL Globulin Albumin/Globulin Ratio Stool Occult Blood Positive H (NEGATIVE) SARS CoV-2 RNA Rapid LIBRADO Negative (NEGATIVE) Blood Type Gel Antibody Screen Crossmatch 10/05/21 10/05/21 Range/Units 10:30 11:20 WBC (4.0-10.0) x10^3/uL RBC (4.00-5.50) x10^6/uL Hgb (12.0-16.0) g/dL Hct (33.0-47.0) % MCV (78.0-93.0) fL MCH (26.0-32.0) pg MCHC (32.0-36.0) g/dL RDW Coeff of Yony (10.0-15.0) % Plt Count (130-400) x10^3/uL Immature Gran % (Auto) (0.00-0.43) % Neut % (Auto) (50.0-80.0) % Lymph % (Auto) (25.0-50.0) % Floyd % (Auto) (2.0-11.0) % Eos % (Auto) (0.0-4.0) % Baso % (Auto) (0.2-1.2) % Neut # (Auto) (1.8-7.7) x10^3/uL Lymph # (Auto) (1.0-4.8) x10^3/uL Floyd # (Auto) (0.0-0.8) x10^3/uL Eos # (Auto) (0.0-0.5) x10^3/uL Baso # (Auto) (0.0-0.2) x10^3/uL Immature Gran # (Auto) (0.00-0.07) x10^3/uL PT (9.9-12.5) SEC INR (2.0-3.5) APTT (25.6-32.8) SEC Sodium (136-145) mmol/L Potassium (3.5-5.1) mmol/L Chloride (98-107) mmol/L Carbon Dioxide (21-32) mmol/L Anion Gap (5-15) mmol/L BUN (7-18) mg/dL Creatinine (0.55-1.02) mg/dL Est Cr Clr Drug Dosing mL/min Estimated GFR (MDRD) Glucose (70-99) mg/dL Calcium (8.5-10.1) mg/dL Corrected Calcium (8.5-10.1) mg/dL Total Bilirubin (0.2-1.0) mg/dL AST (15-37) U/L ALT (14-59) U/L Alkaline Phosphatase (46-116) U/L Total Protein (6.4-8.2) g/dL Albumin (3.4-5.0) g/dL Globulin Albumin/Globulin Ratio Stool Occult Blood (NEGATIVE) SARS CoV-2 RNA Rapid LIBRADO (NEGATIVE) Blood Type Cancelled A POSITIVE Gel Antibody Screen Cancelled Negative Crossmatch See Detail See Detail Med Orders - Current: Current Medications Sodium Chloride (Normal Saline) 1,000 mls @ 200 mls/hr IV ASDIRECTED MERLE Promethazine HCl 12.5 mg/ (Sodium Chloride) 100 mls @ 200 mls/hr IV Q6H PRN PRN Reason: Nausea/Vomiting Pantoprazole Sodium 40 mg/ (Sodium Chloride) 100 mls @ 20 mls/hr IV .CONTINUOUS MERLE Last Admin: 10/05/21 11:46 Dose: 20 mls/hr Documented by: Lactated Ringer's (Ringers, Lactated) 1,000 mls @ 200 mls/hr IV ASDIRECTED MERLE Ondansetron HCl (Ondansetron 4 Mg/2 Ml Sdv) 4 mg IV Q6H PRN PRN Reason: Nausea/Vomiting Last Admin: 10/05/21 11:18 Dose: 4 mg Documented by: Discontinued Medications Factor IX (Pha) (Factor Ix Complex Human 500 Unit Vial) 2,000 unit .ROUTE .STK- MED ONE Stop: 10/05/21 11:31 Promethazine HCl 12.5 mg/ (Sodium Chloride) 100.5 mls @ 400 mls/hr IV ONETIME ONE Stop: 10/05/21 08:42 Last Admin: 10/05/21 08:35 Dose: 400 mls/hr Documented by: Sodium Chloride (Normal Saline) 1,000 mls @ 150 mls/hr IV ASDIRECTED MERLE Lactated Ringer's (Ringers, Lactated) 1,000 mls @ 999 drops/hr IV ASDIRECTED MERLE Last Admin: 10/05/21 11:00 Dose: 999 drops/hr Documented by: Factor IX (Pha) (Kcentra) 80 mls @ 0 mls/hr IV ONETIME ONE Stop: 10/05/21 11:31 Last Admin: 10/05/21 11:34 Dose: 50 mls/hr Documented by: Metoclopramide HCl (Metoclopramide 10 Mg/2 Ml Sdv) 10 mg IVPUSH ONETIME STA Stop: 10/05/21 11:20 Last Admin: 10/05/21 11:28 Dose: 10 mg Documented by: Octreotide Acetate (Octreotide 100 Mcg/Ml Sdv) 50 mcg IV ONETIME ONE Stop: 10/05/21 11:00 Last Admin: 10/05/21 11:14 Dose: 50 mcg Documented by: Ondansetron HCl (Ondansetron 4 Mg/2 Ml Sdv) 4 mg IVPUSH ONETIME ONE Stop: 10/05/21 06:55 Last Admin: 10/05/21 07:05 Dose: 4 mg Documented by: Ondansetron HCl (Ondansetron 4 Mg/2 Ml Sdv) 4 mg IVPUSH ONETIME ONE Stop: 10/05/21 06:57 Last Admin: 10/05/21 07:05 Dose: 4 mg Documented by: Pantoprazole Sodium (Pantoprazole 40 Mg Vial) 40 mg IVPUSH ONETIME ONE Stop: 10/05/21 07:18 Last Admin: 10/05/21 08:26 Dose: 40 mg Documented by: Pantoprazole Sodium (Pantoprazole 40 Mg Vial) 40 mg IVPUSH BID MERLE Last Admin: 10/05/21 11:11 Dose: 40 mg Documented by: *Q Meaningful Use (DIS) - VTE *Q VTE Anticoagulation Contraindications: Medical/Procedure Contrai
[2021-10-05 14:36] VITALS: BP 126/58; PULSE 115
[2021-10-05 14:52] LABS: ANION GAP 17.3 mmol/L (5-15)
== END 2021-10-05 16:00 | disposition short-term general hospital (02) | DRG 378 ==
LOC: VM.ED 06:43 → VM.MS 09:06
PROVIDERS: ADMIT Physician Assistant Medical; ATTEND Family Medicine
PROC: 30233N1 Transfusion of Nonautologous Red Blood Cells into Peripheral Vein, Percutaneous Approach (ICD-10-PCS; principal; 2021-10-05)
DX: K92.0 Hematemesis (principal); K92.1 Melena; I48.91 Unspecified atrial fibrillation; R42 Dizziness and giddiness; R53.83 Other fatigue; R11.2 Nausea with vomiting, unspecified; K92.2 Gastrointestinal hemorrhage, unspecified; D62 Acute posthemorrhagic anemia; I48.19 Other persistent atrial fibrillation; N17.9 Acute kidney failure, unspecified; Z88.7 Allergy status to serum and vaccine; Z20.822 Contact with and (suspected) exposure to COVID-19; I10 Essential (primary) hypertension; G47.33 Obstructive sleep apnea (adult) (pediatric); J45.909 Unspecified asthma, uncomplicated; E66.9 Obesity, unspecified; E78.5 Hyperlipidemia, unspecified; M85.80 Other specified disorders of bone density and structure, unspecified site; Z68.32 Body mass index [BMI] 32.0-32.9, adult; Z79.899 Other long term (current) drug therapy; Z79.01 Long term (current) use of anticoagulants; Z79.82 Long term (current) use of aspirin; Z79.84 Long term (current) use of oral hypoglycemic drugs
CPT/HCPCS: 36415; 36430; 51702; 80048; 80053; 82274; 85025; 85610; 85730; 86850; 86900; 86901; 86920; 86922; 96374; 96375; 99284; 99285-25; C9113; J2354-JA; J2405; J2550; J2765; J7120; J7168; P9016; P9017; U0002

== ENCOUNTER 2025-01-18 19:46 | Emergency (ER) | payer MEDICARE, OTHER ==
[2025-01-18] MEDS: Albuterol/Ipratropium 3.0-0.5 MG/3 ML Neb Soln NEB ONE (20:25)
[2025-01-18] MEDS: methylPREDNISolone Sodium Succinate 125 MG/2 ML SDV IVPUSH ONE (20:25)
[2025-01-18 20:34] LABS: HEMATOCRIT 43.7 % (33.0-47.0); HEMOGLOBIN 14.9 g/dL (12.0-16.0); MEAN CORPUSCULAR HEMOGLOBIN 29.9 pg (26.0-32.0); MEAN CORPUSCULAR HGB CONC 34.1 g/dL (32.0-36.0); MEAN CORPUSCULAR VOLUME 87.8 fL (78.0-93.0); PLATELET COUNT,PLT 133 x10^3/uL (130-400); RED BLOOD CELL COUNT 4.98 x10^6/uL (4.00-5.50); WHITE BLOOD CELL COUNT,WBC 4.6 x10^3/uL (4.0-10.0)
[2025-01-18 20:50] LABS: EOSINOPHILS ABSOLUTE MAN 0.3 x10^3/uL (0.0-0.5); EOSINOPHILS PERCENT MAN 6 % (0-4); LYMPHOCYTES ABSOLUTE MAN 0.5 x10^3/uL (1.0-4.8); LYMPHOCYTES PERCENT MAN 10 % (25-50); MONOCYTES ABSOLUTE MAN 0.5 x10^3/uL (0.0-0.8); MONOCYTES PERCENT MAN 10 % (2-11); NEUTROPHILS ABSOLUTE MAN 3.4 x10^3/uL (1.8-7.7); PLATELET COUNT ESTIMATE ADEQUATE; SEG NEUTROPHILS PERCENT MAN 74 % (50-80)
[2025-01-18 21:01] LABS: A/G RATIO 0.94; ALBUMIN 3.4 g/dL (3.4-5.0); BILIRUBIN TOTAL 1.9 mg/dL (0.2-1.0); CALCIUM 8.7 mg/dL (8.5-10.1); CREATININE 0.9 mg/dL (0.55-1.02); EST CRCL DRUG DOSING (CG) 46.64 mL/min
[2025-01-18] MEDS: Albuterol 0.083% 2.5 MG/3 ML Neb Soln NEB ONE (21:30)
[2025-01-18] MEDS: predniSONE 20 MG Tab PO ONE (22:59)
[2025-01-18] MEDS: Take Home: Albuterol 18 GM Inhaler, 1 Inhaler Pack INH PRN (22:59)
[2025-01-18 23:56] VITALS: BP 137/88; PULSE 95
== END 2025-01-18 23:07 | disposition home or self-care (01) ==
LOC: VM.ED 19:46
DX: J45.909 Unspecified asthma, uncomplicated (principal); J20.8 Acute bronchitis due to other specified organisms; I48.91 Unspecified atrial fibrillation; E78.00 Pure hypercholesterolemia, unspecified; I10 Essential (primary) hypertension; Z88.7 Allergy status to serum and vaccine; Z79.899 Other long term (current) drug therapy; Z79.82 Long term (current) use of aspirin; Z79.84 Long term (current) use of oral hypoglycemic drugs
CPT/HCPCS: 36415; 71045; 80053; 83605; 83880; 84484; 85025; 87040; 87428; 93005; 94640; 96374; 99285; A9270; J2919; J7512; J7613; 93010; 99284